=== PATIENT | female | born 1980 | race Caucasian/White ===

== ENCOUNTER 2016-11-06 03:05 | Emergency (ER) | payer OTHER ==
[~2016-11-06] VITALS: Ht 162.6 cm; Wt 126.0 kg
[~2016-11-06 03:05] MED LIST: CYCL-319 PO; FIORICET PO; HYDR-906 PO; ONDA4TAB8 PO
[2016-11-06 03:16] VITALS: Ht 162.6 cm; Wt 126.0 kg
--- NOTE | 2016-11-06 03:46 | ERA ---
ER Documentation Chief Complaint Date/Time DATE: 11/06/16 TIME: 03:45 Chief Complaint Chest discomfort HPI . . The patient is a 36-year-old female, presenting to the ER because of diffuse abdominal pain that causes left-sided chest discomfort about an hour prior to arrival she had similar symptoms previously, complains of vomiting mostly mucus and constipation. She denies fever, chills, neck pain, chest pain with exertion of vomiting or diaphoresis She does not smoke or drink Past medical history: Hepatitis C, hypothyroidism, history of cardiomyopathy, pulmonary hypertension, migraine Past surgical history: ROS All systems reviewed and are negative except as per history of present illness. Medications Home Meds Active Scripts Levofloxacin* (Levaquin*) 750 Mg Tablet, 750 MG PO DAILY for 10 Days, TAB Prov:CARLOS GILLILAND MD 11/06/16 Ibuprofen* (Motrin*) 600 Mg Tab, 600 MG PO Q6H Y for PAIN AND OR ELEVATED TEMP, #30 TAB Prov:CARLOS GILLILAND MD 11/06/16 Ondansetron Hcl* (Zofran*) 4 Mg Tablet, 4 MG PO Q8H Y for NAUSEA AND/OR VOMITING , #15 TAB Prov:LYNN COYLE DO 03/04/16 Acetamin/Butalbital/Caffeine* (Fioricet*) [id number] Tab, 1 TAB PO Q6H Y for PAIN, #20 TAB Prov:LYNN COYLE DO 03/04/16 Cyclobenzaprine Hcl* (Cyclobenzaprine Hcl*) 10 Mg Tablet, 10 MG PO TID, #15 TAB Prov:MAUREEN HUFFMAN PA-C 11/07/15 Hydrocodone/Acetaminophen ([place] 5-325 Tablet) 1 Each Tablet, 1 TAB PO Q6H Y for PAIN, #7 TAB Prov:MAUREEN HUFFMAN PA-C 11/07/15 Allergies Allergies: Coded Allergies: latex (Verified Allergy, Severe, ANAPHYLAXIS, 11/07/15) ketorolac (Verified Allergy, Unknown, 11/07/15) metoclopramide (Verified Allergy, Unknown, 11/07/15) prochlorperazine (Verified Allergy, Unknown, 11/07/15) trimethobenzamide (Verified Allergy, Unknown, 06/08/15) Uncoded Allergies: TUNA (Allergy, Mild, 06/04/15) PMhx/Soc History of Surgery: Yes (OVARIAN CYST REMOVAL) Anesthesia Reaction: No Hx Neurological Disorder: No Hx Respiratory Disorders: No Hx Cardiac Disorders: Yes (CHF,CARDIOMYOPATHY) Hx Psychiatric Problems: No Hx Miscellaneous Medical Probl: Yes (HYPOTHYROID, thrombocytopenia, hep C, spelomegaly,liver failure stage 4) Hx Alcohol Use: No Hx Substance Use: No Hx Tobacco Use: No Smoking Status: Never smoker Physical Exam Vitals Vital Signs Date Time Temp Pulse Resp B/P Pulse Ox O2 Delivery O2 Flow Rate FiO2 11/06/16 04:57 98.3 88 20 138/88 100 Room Air 11/06/16 03:16 98.3 111 20 167/90 98 Physical Exam Const: No acute distress. Head: Atraumatic. Eyes: Normal Conjunctiva. ENT: Normal External Ears, Nose and Mouth. Neck: Full range of motion. No meningismus. Resp: Clear to auscultation bilaterally. Cardio: Regular tachy Abd: Soft, non distended, normal bowel sounds,.Diffuse abdominal tenderness, no rigidity, rebound, CVA tenderness Skin: No petechiae or rashes. Back: No midline or flank tenderness. Ext: No cyanosis, or edema. Neur: Awake and alert. No focal deficit Psych: Normal Mood and Affect. Result Diagram: 11/06/1642911/06/16 043 Results 24 hrs Laboratory Tests Test 11/06/16 04:30 11/06/16 05:02 White Blood Count 4.610^3/ul Red Blood Count 4.6110^6/ul Hemoglobin 13.2g/dl Hematocrit 38.6% Mean Corpuscular Volume 83.7fl Mean Corpuscular Hemoglobin 28.6pg Mean Corpuscular Hemoglobin Concent 34.2g/dl Red Cell Distribution Width 13.4% Platelet Count 6210^3/UL Mean Platelet Volume 11.7fl Neutrophils % 64.4% Lymphocytes % 24.5% Monocytes % 8.3% Eosinophils % 2.2% Basophils % 0.4% Nucleated Red Blood Cells % 0.0/100WBC Neutrophils # (Manual) 2.910^3/ul Lymphocytes # 1.110^3/ul Monocytes # 0.410^3/ul Eosinophils # 0.110^3/ul Basophils # 0.010^3/ul Nucleated Red Blood Cells # 0.010^3/ul Platelet Estimate SIG DECREASED D-Dimer 264.25ng/ml D-Dimer Comment Sodium Level 139mmol/L Potassium Level 3.8mmol/L Chloride Level 111mmol/L Carbon Dioxide Level 21mmol/L Anion Gap 11 Blood Urea Nitrogen 15mg/dl Creatinine 0.62mg/dl Glucose Level 109mg/dl Calcium Level 9.3mg/dl Total Bilirubin 0.3mg/dl Direct Bilirubin 0.00mg/dl Indirect Bilirubin 0.3mg/dl Aspartate Amino Transf (AST/SGOT) 59IU/L Alanine Aminotransferase (ALT/SGPT) 69IU/L Alkaline Phosphatase 111IU/L Troponin I Pending Total Protein 7.7g/dl Albumin 3.5g/dl Globulin 4.20g/dl Albumin/Globulin Ratio 0.83 Lipase 332U/L Bedside Urine pH (LAB) 6.0 Bedside Urine Protein (LAB) Negative Bedside Urine Glucose (UA) Negative Bedside Urine Ketones (LAB) Negative Bedside Urine Blood 3+ Bedside Urine Nitrite (LAB) Negative Bedside Urine Leukocyte Esterase (L Negative Current Medications Medications (Trade) Dose Ordered Sig/Jourdan Route PRN Reason Start Time Stop Time Status Last Admin Dose Admin Morphine Sulfate (morphine) 4 mg ONCE STAT IV 11/06/16 03:51 11/06/16 03:53 DC 11/06/16 04:34 Ondansetron HCl (Zofran Inj) 4 mg ONCE STAT IV 11/06/16 03:51 11/06/16 03:53 DC 11/06/16 04:33 Procedures/MDM EKG: Read by emergency physician Rate/Rhythm: Sinus tachycardia 123 beats/min QRS, ST, T-waves: No ST elevation, no T inversion, Biatrial enlargement Impression: Abnormal EKG [place] [id number] Radiology Main Line: [phone] DIAGNOSTIC IMAGING REPORT Patient: QUENTIN LUND : 1980 Age: 36 Sex: F MR #: [id number] DOS: 11/06/16 0351 Ordering MD: CARLOS GILLILAND MD Location: E/R Room/Bed: PROCEDURE: ULTRASOUND LIMITED ABDOMEN CLINICAL INDICATION: 36-year-old female with abdominal pain. TECHNIQUE: Multiple sonographic of the right upper quadrant of the abdomen were obtained. The images were reviewed on a PACS workstation. COMPARISON: CT abdomen/pelvis June 06, 2015. FINDINGS: The pancreas is not visualized secondary to overlying bowel gas. The liver displays normal echogenicity. The liver measures 15.6 cm in length. No evidence of intrahepatic biliary ductal dilatation is seen. The portal and hepatic veins are unremarkable. The gallbladder demonstrates no wall thickening, sludge, nor stones. No pericholecystic fluid is seen. The common bile duct measures 3 point a mm and is not dilated. The right kidney displays normal echogenicity. The right kidney measures 11.7 cm in maximal length. No caliectasis or hydronephrosis is seen. No free fluid is seen. IMPRESSION: Unremarkable right upper quadrant abdominal ultrasound. .Tuan Phillips MD, MD Date Time Electronically viewed and signed by .Tuan Phillips MD, on 11/06/2016 05:22 .M/ CC: CARLOS GILLILAND MD [place] [id number] Radiology Main Line: [phone] DIAGNOSTIC IMAGING REPORT Patient: QUENTIN LUND : 1980 Age: 36 Sex: F MR #: [id number] DOS: 11/06/16 035 Ordering MD: CARLOS GILLILAND MD Location: E/R Room/Bed: PROCEDURE: XR Chest. CLINICAL INDICATION: Abdominal pain TECHNIQUE: Single frontal view of the chest was obtained COMPARISON: 06/13/2015 FINDINGS: The heart and mediastinum are within normal limits. Appearance of minimal patchy increased density at the right lung base which could represent patchy infiltrate not seen on previous study. There is no pleural effusion or pneumothorax. ECG leads projected over the chest. IMPRESSION: Appearance of minimal patchy increased density at the right lung base which could represent patchy infiltrate not seen on previous study. RPTAT: HJES .Bob Bryan MD, Date Time Electronically viewed and signed by .Bob Bryan MD, MD on 11/06/2016 04:21 .S/ CC: CARLOS GILLILAND MD [place] [id number] Radiology Main Line: [phone] DIAGNOSTIC IMAGING REPORT Patient: QUENTIN LUND : 1980 Age: 36 Sex: F MR #: [id number] DOS: 11/06/16 0351 Ordering MD: CARLOS GILLILAND MD Location: E/R Room/Bed: PROCEDURE: CT ABDOMEN/PELVIS WITHOUT CONTRAST CLINICAL INDICATION: 36-year-old female with abdominal pain. TECHNIQUE: The study was performed utilizing a [employer] VCT 64-slice CT scanner. Direct axial sections were obtained through the abdomen and pelvis without the use of intravenous contrast material. Sagittal and coronal reformations were obtained. One or more of the following dose reduction techniques were utilized: automated exposure control, adjustment of the mA and/ or kV according to patient's size or use of iterative reconstruction technique. The images were reviewed on a PACS workstation. CTD/vol = 23.2 mGy; Total Exam DLP = 1498.8 mGy-cm. COMPARISON: CT abdomen/pelvis June 06, 2015. FINDINGS: The lung bases are unremarkable. There is no evidence for significant pleural effusion. The liver has a mild irregular contour and enlargement of the left lobe but without focal areas of abnormal density. No intrahepatic nor extrahepatic biliary ductal dilatation is seen. The gallbladder mildly distended but without evidence for calcified stones, significant wall thickening or pericholecystic fluid. The pancreas is without areas of abnormal attenuation. There are small esophageal and splenic varices present. There is recanalization of the umbilical vein with a into this appearance. The spleen is again noted to be markedly enlarged having a superoinferior length of approximately 21.8 cm but without abnormal density. The adrenal glands are unremarkable. The kidneys are without abnormal density. No hydroureteronephrosis nor nephroureterolithiasis is evident. The urinary bladder contains minimal urine. There is diastases of the inferior rectus muscle with flaccidity of the ventral abdominal wall and omental fat extending through this region. There is mild retained stool within the ascending and transverse colon without obstruction. The appendix is visualized and is without abnormal thickening or surrounding inflammatory reaction. There uterus is unremarkable. There is no significant free fluid. The aortoiliac vessels are without aneurysmal dilatation. The osseous structures are intact. IMPRESSION: 1. Mild cirrhotic appearance to the liver with recanalization of the umbilical vein, esophageal and splenic varices consistent with portal hypertension. 2. Marked splenomegaly. 3. Mild retained stool within the proximal colon. 4. No CT evidence for appendicitis. 5. Diastases rectus abdominous with omental fat extending through the defect and flaccidity of the abdominal wall. .Tuan Phillips MD, MD Date Time Electronically viewed and signed by .Tuan Phillips MD, MD on 11/06/2016 05:44 .M/ CC: CARLOS GILLILAND MEDICAL MAKING DECISION: The patient is a 35-year-old female, presenting with acute pneumonia she was treated with morphine formula IV for pain, Zofran formula for nausea with good response. The differential diagnoses for acute chest pain considered include but are not limited to asthma, COPD, pneumonia, pulmonary embolus, pleural effusion, congestive heart failure. The differential diagnoses for acute abdominal pain considered include but are not limited to cholelithiasis, cholecystitis, cystitis, pancreatitis, hepatitis , gastritis, peptic ulcer disease, gastric ulcer, appendicitis, diverticulitis, cholangitis, choledocholithiasis, partial small bowel obstruction. Departure Diagnosis: Primary Impression: Pneumonia Additional Impression: Abdominal pain Condition: Good Comments She was treated with Levaquin and Motrin I discussed the findings with the patient. I advised the patient to follow-up with the primary physician in about 1-2 days, sooner if needed and return if any concern. CARLOS GILLILAND MD Nov 06, 2016 03:46
[2016-11-06] MEDS ORDERED: ONDANSETRON 4 MG INJ IV STA (03:51)
[2016-11-06] MEDS ORDERED: morphine 4 MG/ML VIAL IV STA (03:51)
--- NOTE | 2016-11-06 04:21 | RADRPT ---
PROCEDURE: XR Chest. CLINICAL INDICATION: Abdominal pain TECHNIQUE: Single frontal view of the chest was obtained COMPARISON: 06/13/2015 FINDINGS: The heart and mediastinum are within normal limits. Appearance of minimal patchy increased density at the right lung base which could represent patchy infiltrate not seen on previous study. There is no pleural effusion or pneumothorax. ECG leads projected over the chest. IMPRESSION: Appearance of minimal patchy increased density at the right lung base which could represent patchy infiltrate not seen on previous study. RPTAT: HJES .Bob Bryan MD, MD Date Time Electronically viewed and signed by .Bob Bryan MD, MD on 11/06/2016 04:21 .S/
[2016-11-06 04:55] LABS: ABNORMAL IP MESSAGE 1; BASOPHILS % 0.4 % (0.0-2.0); EOSINOPHILS # 0.1 10^3/ul (0.0-0.5); EOSINOPHILS % 2.2 % (0.0-7.0); HEMATOCRIT 38.6 % (37.0-47.0); HEMOGLOBIN 13.2 g/dl (12.0-16.0); LYMPHOCYTES # 1.1 10^3/ul (0.8-2.9); LYMPHOCYTES % 24.5 % (15.0-51.0); MEAN CORPUSCULAR HEMOGLOBIN 28.6 pg (29.0-33.0); MEAN CORPUSCULAR HGB CONC 34.2 g/dl (32.0-37.0); MEAN CORPUSCULAR VOLUME 83.7 fl (82.0-101.0); MEAN PLATELET VOLUME 11.7 fl (7.4-10.4); MONOCYTE # 0.4 10^3/ul (0.3-0.9); MONOCYTES % 8.3 % (0.0-11.0); NEUTROPHILS % 64.4 % (39.0-77.0); PLATELET COUNT 62 10^3/UL (140-415); RED BLOOD COUNT 4.61 10^6/ul (4.20-5.40); RED CELL DISTRIBUTION WIDTH 13.4 % (11.5-14.5); WHITE BLOOD COUNT 4.6 10^3/ul (4.8-10.8)
[2016-11-06 04:56] LABS: URINE BLOOD (Dip) POC 3+ (NEGATIVE)
[2016-11-06 05:10] LABS: POSITIVE DIFF @See below
[2016-11-06 05:14] LABS: D-DIMER 264.25 ng/ml (<460)
--- NOTE | 2016-11-06 05:22 | RADRPT ---
PROCEDURE: ULTRASOUND LIMITED ABDOMEN CLINICAL INDICATION: 36-year-old female with abdominal pain. TECHNIQUE: Multiple sonographic of the right upper quadrant of the abdomen were obtained. The imag es were reviewed on a PACS workstation. COMPARISON: CT abdomen/pelvis June 06, 2015. FINDINGS: The pancreas is not visualized secondary to overlying bowel gas. The liver displays normal echogenicity. The liver measures 15.6 cm in length. No evidence of intrah epatic biliary ductal dilatation is seen. The portal and hepatic veins are unremarkable. The gallbladder demonstrates no wall thickening, sludge, nor stones. No pericholecystic fluid is see n. The common bile duct measures 3 point a mm and is not dilated. The right kidney displays normal echogenicity. The right kidney measures 11.7 cm in maximal length. No caliectasis or hydronephrosis is seen. No free fluid is seen. IMPRESSION: Unremarkable right upper quadrant abdominal ultrasound. .Tuan Phillips MD, MD Date Time Electronically viewed and signed by .Tuan Phillips MD, on 11/06/2016 05:22 .Sunny/
[2016-11-06 05:29] LABS: ALANINE AMINOTRANSFERASE 69 IU/L (13-69); ALBUMIN 3.5 g/dl (3.3-4.9); ALBUMIN/GLOBULIN RATIO 0.83; ALKALINE PHOSPHATASE 111 IU/L (42-121); ANION GAP 11 (8-16); ASPARTATE AMINO TRANSFERASE 59 IU/L (15-46); BILIRUBIN,INDIRECT 0.3 mg/dl (0-1.1); BILIRUBIN,TOTAL 0.3 mg/dl (0.2-1.3); BLOOD UREA NITROGEN 15 mg/dl (7-20); CALCIUM 9.3 mg/dl (8.4-10.2); CARBON DIOXIDE 21 mmol/L (21-31); CHLORIDE 111 mmol/L (97-110); CREATININE 0.62 mg/dl (0.44-1.00); GLUCOSE 109 mg/dl (70-220); POTASSIUM 3.8 mmol/L (3.5-5.1); SODIUM 139 mmol/L (135-144); TOTAL PROTEIN 7.7 g/dl (6.1-8.1)
[2016-11-06 05:38] LABS: PLATELET ESTIMATE SIG DECREASED
--- NOTE | 2016-11-06 05:45 | RADRPT ---
PROCEDURE: CT ABDOMEN/PELVIS WITHOUT CONTRAST CLINICAL INDICATION: 36-year-old female with abdominal pain. TECHNIQUE: The study was performed utilizing a [employer] VCT 64-slice CT scanner. Direct axia l sections were obtained through the abdomen and pelvis without the use of intravenous contrast mate rial. Sagittal and coronal reformations were obtained. One or more of the following dose reduction t echniques were utilized: automated exposure control, adjustment of the mA and/or kV according to pat ient's size or use of iterative reconstruction technique. The images were reviewed on a PACS workst [employer]. CTD/vol = 23.2 mGy; Total Exam DLP = 1498.8 mGy-cm. COMPARISON: CT abdomen/pelvis June 06, 2015. FINDINGS: The lung bases are unremarkable. There is no evidence for significant pleural effusion. The liver has a mild irregular contour and enlargement of the left lobe but without focal areas of abnormal de nsity. No intrahepatic nor extrahepatic biliary ductal dilatation is seen. The gallbladder mildly di stended but without evidence for calcified stones, significant wall thickening or pericholecystic fl uid. The pancreas is without areas of abnormal attenuation. There are small esophageal and splenic varices present. There is recanalization of the umbilical vein with a into this appearance. The sp cassy is again noted to be markedly enlarged having a superoinferior length of approximately 21.8 cm but without abnormal density. The adrenal glands are unremarkable. The kidneys are without abnormal density. No hydroureteronephrosis nor nephroureterolithiasis is evident. The urinary bladder contain s minimal urine. There is diastases of the inferior rectus muscle with flaccidity of the ventral abdominal wall and omental fat extending through this region. There is mild retained stool within t he ascending and transverse colon without obstruction. The appendix is visualized and is without ab normal thickening or surrounding inflammatory reaction. There uterus is unremarkable. There is no s ignificant free fluid. The aortoiliac vessels are without aneurysmal dilatation. The osseous struct ures are intact. IMPRESSION: 1. Mild cirrhotic appearance to the liver with recanalization of the umbilical vein, esophageal and splenic varices consistent with portal hypertension. 2. Marked splenomegaly. 3. Mild retained stool within the proximal colon. 4. No CT evidence for appendicitis. 5. Diastases rectus abdominous with omental fat extending through the defect and flaccidity of the abdominal wall. .Tuan Phillips MD, MD Date Time Electronically viewed and signed by .Tuan Phillips MD, MD on 11/06/2016 05:44 ./
[2016-11-06] MEDS ORDERED: LEVO750T25 PO (05:56)
[2016-11-06] MEDS ORDERED: IBUP-1542 PO (05:56)
[2016-11-06 06:00] VITALS: BP 129/92; PULSE 87; RESP 20; TEMP 98.3
[2016-11-06 06:05] LABS: TROPONIN-I < 0.012 ng/ml (0.00-0.12)
== END 2016-11-06 06:20 | disposition home or self-care (01) ==
LOC: E/R 03:05
DX: J18.9 Pneumonia, unspecified organism (principal); R10.84 Generalized abdominal pain; I50.9 Heart failure, unspecified; E03.9 Hypothyroidism, unspecified; R40.2142 Coma scale, eyes open, spontaneous, at arrival to emergency department; R40.2252 Coma scale, best verbal response, oriented, at arrival to emergency department; R40.2362 Coma scale, best motor response, obeys commands, at arrival to emergency department; Z91.040 Latex allergy status
CPT/HCPCS: 71010; 74176; 76705; 80053; 81003; 83690; 84484; 85025; 85378; 93005; 96374; 96375; J2270; J2405; Z7502

== ENCOUNTER 2016-12-02 13:08 | Emergency (ER) | payer OTHER ==
[~2016-12-02] VITALS: Wt 110.0 kg
[~2016-12-02 13:08] MED LIST changes: -CYCL-319 PO; -FIORICET PO; -HYDR-906 PO; +IBUP-1542 PO; +LEVO750T25 PO; -ONDA4TAB8 PO
[2016-12-02] MEDS ORDERED: ALBUTEROL 0.083% (NEB) 2.5 MG/3 ML AMP HHN STA (14:48)
--- NOTE | 2016-12-02 14:53 | ERD ---
ER Documentation Chief Complaint Date/Time DATE: 12/02/16 TIME: 14:50 Chief Complaint flu like symptoms x 12 days HPI 33-year-old female presents with coughing for the last 2 weeks she has productive cough. She denies any measured fevers. She may have wheezing and denies any history of asthma. Is here with her son who also had similar symptoms. She has posttussive vomiting, denies abdominal pain or diarrhea. History of CHF denies any pedal edema, exertional dyspnea, or PND. Is familiar with her CHF symptoms and denies any symptoms related to familiar symptoms of CHF ROS All systems reviewed and are negative except as per history of present illness. Medications Home Meds Active Scripts Guaifenesin-Dextromethorphan* (Robitussin* DM) 100MG/10MG/5ML Syrup, 5 ML PO Q4H Y for COUGH for 5 Days, ML Prov:USHA GASTON MD 12/02/16 Azithromycin* (Zithromax*) 250 Mg Tablet, 250 MG PO .ZPACK DIRECTED, #6 TAB TAKE 500 MG (2 TABS) THE FIRST DAY THEN 250 MG (1 TAB) DAYS 2-5 Prov:USHA GASTON MD 12/02/16 Prednisone* (Prednisone*) 20 Mg Tab, 40 MG PO DAILY for 4 Days, TAB Start December 03, 2016 Prov:USHA GASTON MD 12/02/16 Albuterol Sulfate* (Ventolin HFA*) 18 Gm Hfa.aer.ad, 2 PUFF INHALATION Q4H for 7 Days, #1 INHALER Prov:USHA GASTON MD 12/02/16 Levofloxacin* (Levaquin*) 750 Mg Tablet, 750 MG PO DAILY for 10 Days, TAB Prov:CARLOS GILLILAND MD 11/06/16 Ibuprofen* (Motrin*) 600 Mg Tab, 600 MG PO Q6H Y for PAIN AND OR ELEVATED TEMP, #30 TAB Prov:CARLOS GILLILAND MD 11/06/16 Allergies Allergies: Coded Allergies: latex (Unverified Allergy, Severe, ANAPHYLAXIS, 11/06/16) ketorolac (Unverified Allergy, Unknown, 11/06/16) metoclopramide (Unverified Allergy, Unknown, 11/06/16) prochlorperazine (Unverified Allergy, Unknown, 11/06/16) trimethobenzamide (Unverified Allergy, Unknown, 11/06/16) Uncoded Allergies: TUNA (Allergy, Mild, 06/04/15) PMhx/Soc History of Surgery: Yes (OVARIAN CYST REMOVAL) Anesthesia Reaction: No Hx Neurological Disorder: No Hx Respiratory Disorders: No Hx Cardiac Disorders: Yes (CHF,CARDIOMYOPATHY) Hx Psychiatric Problems: No Hx Miscellaneous Medical Probl: Yes (HYPOTHYROID, thrombocytopenia, hep C, spelomegaly,liver failure stage 4) Hx Alcohol Use: No Hx Substance Use: No Hx Tobacco Use: No Physical Exam Vitals Vital Signs Date Time Temp Pulse Resp B/P Pulse Ox O2 Delivery O2 Flow Rate FiO2 12/02/16 15:28 88 20 96 21 12/02/16 13:12 97.7 78 18 152/78 99 Physical Exam Const: [], [id number] Head: Atraumatic Eyes: Normal Conjunctiva ENT: Normal External Ears, Nose and Mouth. Nose and oropharynx normal. Neck: Full range of motion..~ No meningismus. Resp: Clear to auscultation bilaterally. Wheezing primarily on the left midlung field. No rales appreciated. No retractions Cardio: Regular rate and rhythm, no murmurs Abd: Soft, non tender, non distended. Normal bowel sounds Skin: No petechiae or rashes Back: No midline or flank tenderness Ext: No cyanosis, or edema Neur: Awake and alert Psych: Normal Mood and Affect Results 24 hrs Current Medications Medications (Trade) Dose Ordered Sig/Jourdan Route PRN Reason Start Time Stop Time Status Last Admin Dose Admin Albuterol (Proventil 0.083% (Neb)) 5 mg ONCE STAT HHN 12/02/16 14:48 12/02/16 14:50 DC 12/02/16 15:24 Prednisone (Prednisone) 60 mg ONCE ONCE PO 12/02/16 15:00 12/02/16 15:01 DC 12/02/16 15:08 Acetaminophen (Tylenol Tab) 650 mg ONCE ONCE PO 12/02/16 15:30 12/02/16 15:31 DC 12/02/16 15:12 Procedures/MDM She was given prednisone 60 mg an hour, albuterol treatment. She has improved breath sounds after observation and treatment. Chest X-ray 1V Interpreted by me: Soft Tissue: No acute abnormalities Bones: No acute abnormalities Mediastinum/Cardiac Silhouette/Lungs: [No acute abnormalities] percussion- normal 1 view chest x-ray She presents with productive cough for 2 weeks without signs of wheezing that evidence of respiratory distress or hypoxemia.. She will be treated with prednisone, Ventolin and Zithromax and Robitussin. The patient was stable with no new complaints during the ER course. Clinically, there is no current evidence to suggest meningitis, sepsis, acute abdomen, pneumonia, acute coronary syndrome, pulmonary embolism, or any other emergent condition appearing to require further evaluation or hospitalization. The patient should certainly return for any new or worsening symptoms per the aftercare instructions. They should otherwise follow-up with her primary care doctor for reevaluation this week. Departure Diagnosis: Primary Impression: Upper respiratory infection URI type: unspecified URI Qualified Code: J06.9 - Upper respiratory tract infection, unspecified type Condition: Stable SUHA GASTON MD Dec 02, 2016 14:53 USHA GASTON MD Dec 02, 2016 14:53
[2016-12-02] MEDS ORDERED: predniSONE 20 MG TAB PO ONE (15:00)
[2016-12-02] MEDS ORDERED: ACETAMINOPHEN 325 MG TAB PO ONE (15:30)
--- NOTE | 2016-12-02 15:33 | RADRPT ---
PROCEDURE: XR Chest AP portable CLINICAL INDICATION: Short of breath TECHNIQUE: An AP portable radiograph of the chest was submitted. COMPARISON: 11/06/2016 FINDINGS: Support Hardware: None Cardiovascular: The cardiovascular silhouette appears unremarkable. Lung Crandall: The lung crandall appear clear with no nodule, alveolar infiltrate, or interstitial promi nence evident. Pleural Spaces: No pneumothorax or pleural effusion is identified. Osseous Structures: The osseous structures appear intact. Soft Tissues: The soft tissues appear generous. IMPRESSION: Stable and unremarkable portable chest. Physician Kim Date Time Electronically viewed and signed by Physician Kim on 12/02/2016 15:33 /
[2016-12-02] MEDS ORDERED: PRED20TA PO (16:10)
[2016-12-02] MEDS ORDERED: ALBU18HF INHALATION (16:10)
[2016-12-02] MEDS ORDERED: AZIT250T94 PO (16:11)
[2016-12-02] MEDS ORDERED: UDROBDM PO (16:12)
[2016-12-02 16:23] VITALS: PULSE 75; RESP 22
== END 2016-12-02 16:25 | disposition home or self-care (01) ==
LOC: FTE 13:08
DX: J06.9 Acute upper respiratory infection, unspecified (principal); I50.9 Heart failure, unspecified; E03.9 Hypothyroidism, unspecified; Z91.040 Latex allergy status
CPT/HCPCS: 71010; 94664; J7512; Z7502; Z7610

== ENCOUNTER 2017-03-24 19:13 | Emergency (ER) | END 2017-03-24 23:55 | disposition home or self-care (01) ==

== ENCOUNTER 2017-05-10 15:16 | Emergency (ER) | END 2017-05-10 21:00 | disposition home or self-care (01) ==

== ENCOUNTER 2017-07-13 22:49 | Emergency (ER) | END 2017-07-14 04:05 | disposition home or self-care (01) ==

== ENCOUNTER 2017-09-05 19:39 | Emergency (ER) | END 2017-09-05 22:26 | disposition home or self-care (01) ==

== ENCOUNTER 2017-10-13 01:50 | Emergency (ER) | END 2017-10-13 06:20 | disposition home or self-care (01) ==

== ENCOUNTER 2017-10-31 01:52 | Emergency (ER) | END 2017-10-31 04:10 | disposition home or self-care (01) ==

== ENCOUNTER 2017-11-21 03:05 | Emergency (ER) | END 2017-11-21 05:20 | disposition home or self-care (01) ==

== ENCOUNTER 2017-12-27 04:14 | Emergency (ER) | END 2017-12-27 08:02 | disposition home or self-care (01) ==

== ENCOUNTER 2018-05-10 21:42 | Emergency (ER) | payer OTHER ==
[~2018-05-10] VITALS: Ht 177.8 cm; Wt 126.0 kg
[~2018-05-10 21:42] MED LIST changes: +ALBU18HF INHALATION; +ALPR0.5T PO; +AMOX500C2 PO; +CEPH-443 PO; +CIPR500T4 PO; +GUAI-637 PO; +HYDR-3980 PO; -IBUP-1542 PO; -LEVO750T25 PO; +LIDO700A29 TP; +METH10TA5 PO; +NAPR-688 PO; +NAPR-985 PO; +NITR-58 PO; +ONDA4TAB14 PO; +ONDA4TAB95 PO; +SODI126M NASAL; +ZOF8 PO
[2018-05-10 21:54] VITALS: BP 156/78; PULSE 115; RESP 18; Ht 177.8 cm; Wt 126.0 kg
--- NOTE | 2018-05-10 23:38 | ERD ---
ER Documentation Chief Complaint Chief Complaint RIGHT LOWER PELVIC PAIN WITH EXTREME VAG BLEEDING HPI 37-year-old female, presents the emergency department, complaining of right lower pain, associated with heavy vaginal bleeding, she started her period today. The patient is requesting pain medication. ROS All systems reviewed and are negative except as per history of present illness. Medications Home Meds Active Scripts Lidocaine (Lidoderm) 1 Each Adh..patch, 1 EACH TP BID PRN for PAIN, #1 BOX Prov:DEBRA BRITO MD 12/27/17 Naproxen* (Naprosyn*) 500 Mg Tablet, 500 MG PO BID PRN for PAIN AND/OR INFLAMMATION, #30 TAB Prov:DEBRA BRITO MD 12/27/17 Albuterol Sulfate* (Ventolin HFA*) 18 Gm Hfa.aer.ad, 2 PUFF INHALATION Q4H, #1 INHALER Prov:NADIR REGAN NP 11/21/17 Sodium Chloride (Saline Nasal Mist) 126 Ml Mist, 2 SPRAY NASAL Q2H PRN for NASAL CONGESTION, #1 BOTTLE Prov:NADIR REGAN NP 11/21/17 Guaifenesin* (Robitussin*) 100 Mg/5 Ml Syrup, 200 MG PO Q6H PRN for COUGH, #120 ML Prov:NADIR REGAN NP 11/21/17 Nitrofurantoin Monohyd Macrocr* (Macrobid*) 100 Mg Capsr, 100 MG PO BID for 7 Days, CAP Prov:NADIR REGAN NP 11/21/17 Ondansetron Hcl* (Zofran*) 8 Mg Tab, 8 MG PO Q6H PRN for NAUSEA AND OR VOMITING, #20 TAB Prov:CLIFF PANTOJA MD 10/31/17 Ondansetron (Ondansetron Odt) 4 Mg Tab.rapdis, 4 MG PO Q6H PRN for NAUSEA AND/OR VOMITING, #10 TAB Prov:HOLLY MURCIA 10/13/17 Hydrocodone/Acetaminophen (Zenia 10-325 Tablet) 1 Each Tablet, 1 TAB PO Q6H PRN for PAIN, #7 TAB Prov:HOLLY MURCIA 10/13/17 Alprazolam* (Xanax*) 0.5 Mg Tab, 0.5 MG PO Q8H PRN for ANXIETY, #3 TAB Prov:MONAE ROBIN DO 09/05/17 Naproxen* (Naproxen*) 500 Mg Tablet, 500 MG PO BID PRN for PAIN, #20 TAB Prov:MONAE ROBIN DO 09/05/17 Cephalexin* (Keflex*) 500 Mg Capsule, 500 MG PO QID for 3 Days, CAP Prov:MONAE ROBIN DO 09/05/17 Hydrocodone/Acetaminophen (Zenia 10-325 Tablet) 1 Each Tablet, 1 TAB PO Q6H PRN for PAIN, #20 TAB Prov:HOLLY MURCIA S. 07/14/17 Ondansetron (Ondansetron Odt) 4 Mg Tab.rapdis, 4 MG PO Q6H PRN for NAUSEA AND/OR VOMITING, #10 TAB Prov:HOLLY MURCIA S. 07/14/17 Ciprofloxacin Hcl* (Ciprofloxacin Hcl*) 500 Mg Tablet, 500 MG PO BID for 7 Days, TAB Prov:HOLLY MURCIA S. 07/14/17 Reported Medications Amoxicillin* (Amoxicillin*) 500 Mg Cap, 500 MG PO BID, #20 CAP 07/14/17 Albuterol Sulfate* (Ventolin HFA*) 18 Gm Hfa.aer.ad, 2 PUFF INHALATION TID, #1 INHALER 07/14/17 Methimazole* (Methimazole*) 10 Mg Tablet, 20 MG PO TID, TAB 07/14/17 Ondansetron Hcl* (Ondansetron Hcl*) 4 Mg Tablet, 4 MG PO Q4H PRN for NAUSEA AND OR VOMITING, TAB 07/14/17 Allergies Allergies: Coded Allergies: latex (Verified Allergy, Severe, ANAPHYLAXIS, 09/05/17) ketorolac (Verified Allergy, Unknown, 09/05/17) metoclopramide (Verified Allergy, Unknown, 09/05/17) prochlorperazine (Verified Allergy, Unknown, 09/05/17) trimethobenzamide (Verified Allergy, Unknown, 09/05/17) PMhx/Soc History of Surgery: Yes () Anesthesia Reaction: No Hx Neurological Disorder: No Hx Respiratory Disorders: No Hx Cardiac Disorders: No Hx Psychiatric Problems: No Hx Miscellaneous Medical Probl: Yes (Hyperthyroidism, ovarian cyst R) Hx Alcohol Use: Yes (socially) Hx Substance Use: No Hx Tobacco Use: Yes Smoking Status: Current every day smoker FmHx Family History: No diabetes, No coronary disease Physical Exam Vitals Vital Signs Date Temp Pulse Resp B/P (MAP) Pulse Ox O2 O2 Flow FiO2 Time Delivery Rate 05/10/18 97.4 115 18 156/78 98 21:54 (104) Physical Exam Const: No acute distress Head: Atraumatic Eyes: Normal Conjunctiva ENT: Normal External Ears, Nose and Mouth. Neck: Full range of motion. No meningismus. Resp: Clear to auscultation bilaterally Cardio: Regular rate and rhythm, no murmurs Abd: Soft, non tender, non distended. Normal bowel sounds : Normal external genitalia, mild vaginal bleeding seen. Skin: No petechiae or rashes Back: No midline or flank tenderness Ext: No cyanosis, or edema Neur: Awake and alert Psych: Normal Mood and Affect Procedures/MDM Vital signs stable. Differential diagnosis considered include UTI, cystitis, , endometriosis, pelvic inflammatory disease, ruptured ovarian cyst, ectopic , appendicitis, kidney stone. Low suspicion for acute abdomen. During the ED course the patient remained stable, no new complaints. Results and clinical impression discussed with the patient who agrees with management. The patient is stable to be treated outpatient and will be discharged home. Follow up with the primary care provider in the next 48h has been recommended. If symptoms persist, worsen or new symptoms develop, then patient should return to the ED immediately. Instructions explained and given directly by me to the patient with acknowledgment and demonstrated understanding. Disclaimer: Inadvertent spelling and grammatical errors are likely due to EHR/dictation software use and do not reflect on the overall quality of patient care. Also, please note that the electronic time recorded on this note does not necessarily reflect the actual time of the patient encounter. Departure Diagnosis: Primary Impression: Dysmenorrhea Condition: Stable Additional Instructions: Thank you very much for allowing us to participate in your care. Your health and safety is our top priority at [facility]. Call your primary care doctor TOMORROW for an appointment during the next 2-4 days and bring all the information and medications prescribed. Have prescriptions filled and follow precisely the directions on the label. If the symptoms get worse and your provider is unavailable, return to the Emergency Department immediately. MILE AVALOS MD May 10, 2018 23:38
[2018-05-11] MEDS ORDERED: HYDROCODONE/APAP (5/325) TAB PO ONE (00:30)
== END 2018-05-11 00:27 | disposition home or self-care (01) ==
LOC: FTE 21:42
DX: N94.6 Dysmenorrhea, unspecified (principal); F17.210 Nicotine dependence, cigarettes, uncomplicated; Z91.040 Latex allergy status
CPT/HCPCS: Z7502; Z7610; 99284

== ENCOUNTER 2018-08-23 02:52 | Emergency (ER) | payer OTHER ==
[~2018-08-23] VITALS: Ht 177.8 cm; Wt 127.3 kg
[~2018-08-23 02:52] MED LIST changes: +D-ME473S2; +FER325 PO; +FOLI-49 PO; +MULT-551 PO; +PRED20TA PO; +PROP10TA6 PO; +TRAM50TA2 PO
[2018-08-23 02:55] VITALS: Ht 177.8 cm; Wt 127.3 kg
[2018-08-23] MEDS ORDERED: morphine 4 MG/ML VIAL IV STA (03:18)
[2018-08-23] MEDS ORDERED: ONDANSETRON 4 MG INJ IV STA (03:18)
[2018-08-23] MEDS ORDERED: HYDROmorphONE 0.5 MG/0.5 ML SYG IV STA (04:49)
[2018-08-23 05:36] VITALS: BP 126/78; PULSE 72; RESP 16
== END 2018-08-23 05:57 | disposition home or self-care (01) ==
LOC: E/R 02:52
DX: R07.9 Chest pain, unspecified (principal); I25.2 Old myocardial infarction; F17.210 Nicotine dependence, cigarettes, uncomplicated; Z91.040 Latex allergy status
CPT/HCPCS: 71045; 80053; 81025; 83880; 84484; 85025; 85610; 85730; 93005; J1170; J2270; J2405; 36415; 96374; 96375

== ENCOUNTER 2018-09-14 03:14 | Emergency (ER) | payer OTHER ==
[~2018-09-14] VITALS: Ht 177.8 cm; Wt 126.6 kg
[~2018-09-14 03:14] MED LIST changes: -AMOX500C2 PO; -CEPH-443 PO; -CIPR500T4 PO; -GUAI-637 PO; -HYDR-3980 PO; -LIDO700A29 TP; -NAPR-688 PO; -NAPR-985 PO; -NITR-58 PO; -ONDA4TAB14 PO; -ONDA4TAB95 PO; -SODI126M NASAL; -ZOF8 PO
[2018-09-14 03:15] VITALS: Ht 177.8 cm; Wt 126.6 kg
--- NOTE | 2018-09-14 03:31 | ERD ---
ER Documentation Chief Complaint Chief Complaint CP HPI The patient is a 38-year-old female, presenting to the ER because of left-sided chest discomfort and left upper extremity pain/tingling around 12:30 AM. She has been drinking, had 4 shots and 2 glasses of wine, denies illicit drug. She denies fever, chills, cough, chest pain with vomiting/exertion/diaphoresis, dyspnea, abdominal pain, vomiting, dizzy, diarrhea. She does not smoke does illicit drug She was seen in the ER on August 23, 2017 for chest pain, extensive work-up was unremarkable Past medical history: Anemia, hypothyroidism Surgical history: ROS All systems reviewed and are negative except as per history of present illness. Medications Home Meds Active Scripts Prednisone* (Prednisone*) 20 Mg Tab, 40 MG PO DAILY for 4 Days, TAB Prov:HOLLY MURCIA 08/23/18 Alprazolam* (Xanax*) 0.5 Mg Tab, 0.5 MG PO TID, #6 TAB Prov:HOLLY MURCIA 08/23/18 Tramadol HCl (Tramadol HCl) 50 Mg Tablet, 50 MG PO Q4 PRN for PAIN, #20 TAB Prov:HOLLY MURCIA 08/23/18 Reported Medications Multivitamin (Once Daily) 1 Each Tablet, 1 TAB PO DAILY for 90 Days, #90 08/23/18 Folic Acid* (Folic Acid*) 1 Mg Tablet, 1 MG PO DAILY for 30 Days, #30 08/23/18 Ferrous Sulfate* (Ferrous Sulfate*) 325 Mg Tabec, 325 MG PO DAILY for 34 Days, #100 08/23/18 Propranolol Hcl* (Propranolol Hcl*) 10 Mg Tablet, 10 MG PO DAILY 08/23/18 Dextromethorphan Hb-Promethazine Hcl* (Promethazine DM* Syrup) 473 Ml Syrup 08/23/18 Albuterol Sulfate* (Ventolin HFA*) 18 Gm Hfa.aer.ad, 2 PUFF INHALATION TID, #1 INHALER 07/14/17 Methimazole* (Methimazole*) 10 Mg Tablet, 20 MG PO TID, TAB 07/14/17 Allergies Allergies: Coded Allergies: latex (Unverified Allergy, Severe, ANAPHYLAXIS, 08/23/18) ketorolac (Unverified Allergy, Unknown, 08/23/18) metoclopramide (Unverified Allergy, Unknown, 08/23/18) prochlorperazine (Unverified Allergy, Unknown, 08/23/18) trimethobenzamide (Unverified Allergy, Unknown, 08/23/18) PMhx/Soc History of Surgery: Yes () Anesthesia Reaction: No Hx Neurological Disorder: No Hx Respiratory Disorders: No Hx Cardiac Disorders: No Hx Psychiatric Problems: No Hx Miscellaneous Medical Probl: Yes (Hyperthyroidism, ovarian cyst R) Hx Alcohol Use: Yes (socially) Hx Substance Use: No Hx Tobacco Use: Yes Physical Exam Vitals Vital Signs Date Temp Pulse Resp B/P (MAP) Pulse Ox O2 O2 Flow FiO2 Time Delivery Rate 09/14/18 97.6 96 18 145/92 98 03:15 (109) Physical Exam Const: No acute distress. Head: Atraumatic. Eyes: Normal Conjunctiva. ENT: Normal External Ears, Nose and Mouth. Neck: Full range of motion. No meningismus. Resp: Clear to auscultation bilaterally. Cardio: Regular rate and rhythm. Abd: Soft, non distended, normal bowel sounds, non tender. Skin: No petechiae or rashes. Back: No midline or flank tenderness. Ext: No cyanosis, or edema. Neur: Awake and alert. No focal deficit Psych: Anxious Result Diagram: 09/14/18 0356 09/14/18 0356 Results 24 hrs Laboratory Tests Test 09/14/18 03:43 09/14/18 03:44 09/14/18 03:56 POC Beta HCG, Qualitative NEGATIVE Bedside Urine pH (LAB) 6.0 Bedside Urine Protein (LAB) Negative Bedside Urine Glucose (UA) Negative Bedside Urine Ketones (LAB) Negative Bedside Urine Blood 1+ Bedside Urine Nitrite (LAB) Negative Bedside Urine Leukocyte Esterase Negative (L White Blood Count 5.3 10^3/ul Red Blood Count 4.38 10^6/ul Hemoglobin 13.1 g/dl Hematocrit 38.1 % Mean Corpuscular Volume 87.0 fl Mean Corpuscular Hemoglobin 29.9 pg Mean Corpuscular 34.4 g/dl Hemoglobin Concent Red Cell Distribution Width 14.7 % Platelet Count 63 10^3/UL Mean Platelet Volume 10.6 fl Immature Granulocytes % 0.200 % Neutrophils % 66.1 % Lymphocytes % 22.9 % Monocytes % 6.8 % Eosinophils % 3.4 % Basophils % 0.6 % Nucleated Red Blood Cells % 0.0 /100WBC Immature Granulocytes # 0.010 10^3/ul Neutrophils # 3.5 10^3/ul Lymphocytes # 1.2 10^3/ul Monocytes # 0.4 10^3/ul Eosinophils # 0.2 10^3/ul Basophils # 0.0 10^3/ul Nucleated Red Blood Cells # 0.0 10^3/ul D-Dimer 220.00 ng/ml D-Dimer Comment Sodium Level 147 mmol/L Potassium Level 4.3 mmol/L Chloride Level 119 mmol/L Carbon Dioxide Level 20 mmol/L Anion Gap 8 Blood Urea Nitrogen 11 mg/dl Creatinine 0.69 mg/dl Est Glomerular Filtrat Rate mL/min > 60 mL/min Glucose Level 114 mg/dl Calcium Level 9.2 mg/dl Troponin I < 0.012 ng/ml Urine Opiates Screen Negative Urine Barbiturates Negative Urine Amphetamines Screen Negative Urine Benzodiazepines Screen Negative Urine Cocaine Screen Negative Urine Cannabinoids Negative Ethyl Alcohol Level 208.0 mg/dl Current Medications Medications Dose Sig/Jourdan Start Time Status Last (Trade) Ordered Route PRN Stop Time Admin Dose Reason Admin Sodium 1,000 ml @ Q1H STAT 09/14/18 DC 09/14/18 Chloride 1,000 mls/hr IV 03:39 04:02 09/14/18 04:38 Tramadol 50 mg ONCE ONCE 09/14/18 DC 09/14/18 HCl PO 04:00 04:02 (Ultram) 09/14/18 04:01 Ondansetron 4 mg ONCE STAT 09/14/18 DC 09/14/18 HCl (Zofran IV 04:07 04:11 Inj) 09/14/18 04:08 Ondansetron 4 mg STK-MED 09/14/18 DC HCl (Zofran ONCE .ROUTE 04:07 Inj) 09/14/18 04:08 Procedures/MDM EKG: At 3:19 AM read by emergency physician Rate/Rhythm: Normal Sinus Rhythm 96 beats/min QRS, ST, T-waves: No ST elevation, no T inversion Impression: Abnormal EKG EKG: At 4:15 AM read by emergency physician Rate/Rhythm: Normal Sinus Rhythm 82 beats/min QRS, ST, T-waves: No ST elevation, no T inversion Impression: Abnormal EKG Portable chest x-ray radiologist report is pending MEDICAL MAKING DECISION: The patient is a 38-year-old female, presenting with acute chest pain of unclear etiology, alcohol intoxication. She was treated with Ultram 50 mg p.o. for pain with good response, is currently resting well in the emergency department The differential diagnoses considered include but are not limited to acute coronary syndrome, acute myocardial infarction, pericarditis, pulmonary emb olism, aortic dissection, pneumonia, pleural effusion, pneumothorax, GERD, chest wall pain. The patient presents with chest pain and I considered pulmonary embolism, aortic dissection, pneumothorax among other diagnoses. Evaluation for acute coronary syndrome was performed. The HEART score (www.mdcalc.com) was utilized for risk stratification and found to be <= 3. Repeat EKG and troponin @ 3 hours were unchanged. Based on this evaluation the patients risk of major adverse cardiac events is <1%. Shared decision making occurred with patient and the decision has been made to discharge the patient for outpatient evaluation and functional study within 72 hours. Departure Diagnosis: Primary Impression: Chest pain Condition: Good Comments If the second troponin comes back negative, she can be discharged The patient's blood pressure was elevated (>120/80) but appears stable without evidence of hypertension emergency or urgency. The patient was counseled about the risks of hypertension and urged to pursue outpatient monitoring and therapy within a week with their primary care physician. I discussed the findings with the patient. I advised the patient to follow-up with her [employer] supervisor in about 1-2 days, sooner if needed and return if any concern. Disclaimer: Inadvertent spelling and grammatical errors are likely due to EHR/dictation software use and do not reflect on the overall quality of patient care. Also, please note that the electronic time recorded on this note does not necessarily reflect the actual time of the patient encounter. CARLOS GILLILAND MD Sep 14, 2018 03:31
[2018-09-14] MEDS ORDERED: SOD CHLORIDE 0.9% 1,000 ML IV STA (03:39)
[2018-09-14] MEDS ORDERED: traMADol 50 MG TAB PO ONE (04:00)
[2018-09-14] MEDS ORDERED: ONDANSETRON 4 MG INJ ONE (04:07)
[2018-09-14] MEDS ORDERED: ONDANSETRON 4 MG INJ IV STA ×2 (04:07→05:00)
[2018-09-14] MEDS ORDERED: LORAZEPAM 2 MG INJ IV ONE (05:00)
[2018-09-14] MEDS ORDERED: morphine 2 MG INJ IV STA (05:00)
[2018-09-14] MEDS ORDERED: HYDROCODONE/APAP (10/325) TAB PO ONE (07:00)
[2018-09-14 07:08] VITALS: BP 114/84; PULSE 92; RESP 18
== END 2018-09-14 07:13 | disposition home or self-care (01) ==
LOC: E/R 03:14
DX: R07.89 Other chest pain (principal); E03.9 Hypothyroidism, unspecified; Z87.891 Personal history of nicotine dependence; Z91.040 Latex allergy status
CPT/HCPCS: 36415; 71045; 80048; 80307; 81003; 81025; 84484; 85025; 85378; 93005; 96374; 96375; 96376; J2060; J2270; J2405; J7030; Z7502; Z7610